=== PATIENT | female | born 1940 | race Caucasian/White ===

== ENCOUNTER 2019-03-15 10:32 | Day surgery (SDC) | payer MEDICARE, OTHER ==
[~2019-03-15 10:32] MED LIST: BUPIVACAINE HCL 0.75% INJ/PF (7.5 MG/1 ML) 10 ML SDV OD PRN; KETOROLAC TROMETHAMINE 0.45% 4 DROP/0.4 ML DROPERETTE OD PRN; LIDOCAINE 4% INJ/PF (40 MG/ML) 5 ML AMPUL OD PRN
[2019-03-15] MEDS ORDERED: TETRACAINE HCL 0.5% OPH SOLN 4 ML ONE (11:08)
[2019-03-15] MEDS ORDERED: EPINEPHRINE INJ/PF 1 MG/1 ML AMPULE ONE (11:09)
[2019-03-15] MEDS ORDERED: CHONDR SU A NA/HYALUR INTRAOC KIT (SURGICARE) ONE (11:10)
[2019-03-15] MEDS: TETRACAINE HCL 0.5% OPH SOLN 4 ML OD PRN ×3 (11:10→11:50)
[2019-03-15] MEDS ORDERED: LIDOCAINE 1% INJ-PF (10 MG/ML) 30 ML SDV ONE (11:10)
[2019-03-15] MEDS: TROPICAMIDE 1% OPH SOLN 15 ML OD PRN ×3 (11:10→11:27)
[2019-03-15] MEDS: CYCLOPENTOLATE 0.2%/PHENYLEPHRINE 1% OPH SOLN 2 ML OD PRN ×3 (11:11→11:27)
[2019-03-15] MEDS: BESIFLOXACIN HCL 0.6% OPH SUSP 5 ML BOTTLE OD PRN ×4 (11:11→12:10)
[2019-03-15] MEDS ORDERED: MIDAZOLAM 2 MG/2 ML INJ ONE (11:42)
[2019-03-15] MEDS ORDERED: FENTANYL CITRATE INJ/PF 100 MCG/2 ML AMPUL ONE (11:42)
[2019-03-15] MEDS: DORZOLAMIDE HCL 2%/TIMOLOL MALEAT 0.5% OPH SOLN 10 ML OD PRN ×2 (12:08→12:10)
--- NOTE | 2019-04-04 16:26 | Operative Report ---
Operative Report[facility] Operative Report: Preoperative Diagnosis: Nuclear and cortical cataract, right eye Postoperative diagnosis: Nuclear and cortical cataract, right eye Procedure: Phacoemulsification and posterior chamber intraocular lens, right eye Procedure date: March 15, 2019 Surgeon: Gui Sheth MD Carrier Loader: Barber [place] CRNA Anesthesia: Topical with IV sedation Complications: none Tissue to pathology: none Estimated blood loss: none Indications for Surgery: Mrs. Rocha is an 78-year-old female who presented to our clinic complaining of difficulty reading and driving to too blurry vision in her right eye. On examination, she was found to have a best corrected visual acuity of 20/25 and with glare testing 20/40 in the right eye. Ophthamoscopy revealed 2+ nuclear and 2+ cortical degeneration cataract in the right eye with a normal appearing cornea, vitreous, retina and optic nerve.I discussed the findings of the exam with a patient. We discussed the risks, benefits and alternatives ofcataract extraction and intraocular lens implant as a means of improving her vision in the right eye. After our discussion, the patient indicated her interest in having this procedure performed by signing uninformed,Risks that were presented to the patient included infection, bleeding, retinal detachment and possible n eed for additional surgery. Patient understands that she may need to wear glasses after surgery. After our discussion the patient indicated her interest in having this procedure performed by signing and informed witnessed consent form. Report of Procedure: On the day of surgery, the patient was given a topical application to the right eye that consisted of drops of 0.5% tetracaine, Tropicamide 1%, cyclomydril, Besivance 0.6% and Acular 0.45%. The patient was then taken to the operating room in a supine position in a standard eye bed. Intravenous sedation was administered and she was prepped and draped in the standard ophthalmic fashion.A time out was performed.Attention was then directed to the right eye where a paracentesis was created at the 1130 position at the limbus with a 15 blade. The anterior chamber was filled with 0.3 mL of 1% methylparaben free lidocaine and after 30 seconds the chamber was filled with viscoelastic material.A three- plane corneal incision was then made at the 9 oclock position at the limbus with a cystotome. The lens was [place] dissected using balanced saline solution. The lens nucleus was in removed using the stop and shop technique. CDE was 10.95. The remaining cortical material was in removed from the posterior capsular bag using irrigation and aspiration. The posterior capsular bag was in filled with viscoelastic material and a lens implant was inserted into the posterior capsular bag. The lens chosen for this case was a one piece acrylic lens from [employer] model SN60WF, Serial number [id number]. The lens power is 16.0 dpt. The lens was removed from its package, inspected and found to be free of defects. It was loaded into an alkaline monarch D salvager helper. The lens inspector was advanced through the temporal limbal wound And the lens with advanced into the posterior capsular bag. It was centered in the bag with a Nectar spatula. The viscoelastic materials and removed from the eye using irrigation and aspiration. The wounds were closed by stromal hydration. They were tested with Weck-sin sponges and found to have no leaks. Intraocular pressure was assessed by manual palpation and found to be within physiologic range. Drops of Durezol, Combigan and gatifloxacin were instilled In the right eye, the drapes and speculum were removed, the periocular skin was washed with gauze In the eye was covered with a shield. The patient was then taken to the recovery area in good condition. She tolerated the procedure very well. She was given instructions to use gatifloxacin, Durezol and Ilevro every two hours while awake today. She will return to my clinic tomorrow for follow up evaluation.
== END 2019-03-15 12:51 | disposition home or self-care (01) ==
LOC: SC 10:32
PROVIDERS: ATTEND Ophthalmology
DX: H25.811 Combined forms of age-related cataract, right eye (principal); G47.30 Sleep apnea, unspecified
CPT/HCPCS: 66984; 00142; V2632; J2250; J3490 ×3; A9270; J0171; J3010; 142